=== PATIENT | male | born 1965 | race Caucasian/White ===

== ENCOUNTER 2023-12-01 00:34 | Emergency (ER) | payer BC, SELFPAY ==
[2023-12-01 00:42] VITALS: BP 144/94; PULSE 75; RESP 20; TEMP 36.5; O2SAT 100; BMI 34.4
--- NOTE | 2023-12-01 01:03 | ED.GENADULT ---
HPI - General Adult General Chief complaint: Cough Stated complaint: Cough History of Present Illness HPI narrative: Patient is a 58-year-old gentleman comes in today with nonproductive cough 10 days duration. He has had no fevers no chills no night sweats no shortness of breath. He is quite frustrated by the persistence of the coughing and is looking for further treatment. He has been taking halls and Mucinex at home with no improvement. No other significant symptoms have been noted. Patient has been eating and drinking and staying hydrated. Related Data Home Medications Medication Instructions Recorded Confirmed guaifenesin [Mucinex] PO 11/29/23 11/29/23 Previous Rx's Medication Instructions Recorded amoxicillin 875 mg-potassium 1 tab PO BID 10 days #20 tabs 11/29/23 clavulanate 125 mg tablet benzonatate 200 mg capsule 200 mg PO BID-TID PRN cough #30 11/29/23 caps Allergies Allergy/AdvReac Type Severity Reaction Status Date / Time acetaminophen [From Roxicet] AdvReac Hallucinati Verified 12/01/23 00:42 ng oxycodone [From Roxicet] AdvReac Hallucinati Verified 12/01/23 00:42 ng Review of Systems Status of ROS: Reports: 6 or more systems reviewed and unremarkable except as noted in History and below [facility] Medical History Gastroenteritis ?K52.9 - Noninfective gastroenteritis and colitis, unspecified (ICD-10) Exam Narrative: Exam Narrative: EXAM GENERAL: Patient appears comfortable and well. EYES: No scleral icterus. ENT: Tympanic membranes and oropharynx normal. THYROID: no thyroid nodules or thyromegaly. LYMPH: No supraclavicular or cervical lymphadenopathy. SKIN: Visible skin seen during exam normal or with benign process only. EXT: No dependent lower extremity pedal edema. HEART: Regular rate and rhythm with no murmurs, rubs, or gallops. LUNGS: Clear to auscultation bilaterally with no crackles or wheezes. ABD: Soft, non tender, non distended. PSYCH: Good eye contact, speech is not pressured. Const: Vital Signs, click to edit/add: Vital Signs - 24 hr 12/01/23 00:42 Temperature 97.7 F Pulse Rate [Pulse Oximeter] 75 Respiratory Rate 20 Blood Pressure [Ri ght Upper Arm] 144/94 H Pulse Oximetry 100 Oxygen Delivery Me thod Room Air Course Course ED Course: Patient seen and examined. Vital Signs Vital signs: Initial Vital Signs Temperature 97.7 F 12/01/23 00:42 Temperature Source Temporal Artery Scan 12/01/23 00:42 Pulse Rate 75 12/01/23 00:42 Pulse Rhythm Regular 12/01/23 00:42 Pulse Strength 3+ Normal 12/01/23 00:42 Respiratory Rate 20 12/01/23 00:42 Blood Pressure 144/94 H 12/01/23 00:42 Blood Pressure Mean 110 H 12/01/23 00:42 Blood Pressure Position Sitting 12/01/23 00:42 Pulse Oximetry 100 12/01/23 00:42 Oxygen Delivery Method Room Air 12/01/23 00:42 Vital Signs Temperature 97.7 F 12/01/23 00:42 Pulse Rate 75 12/01/23 00:42 Respiratory Rate 20 12/01/23 00:42 Blood Pressure 144/94 H 12/01/23 00:42 Pulse Oximetry 100 12/01/23 00:42 Oxygen Delivery Method Room Air 12/01/23 00:42 Temperature 97.7 F 12/01/23 00:42 Pulse Rate 75 12/01/23 00:42 Respiratory Rate 20 12/01/23 00:42 Blood Pressure 144/94 H 12/01/23 00:42 Pulse Oximetry 100 12/01/23 00:42 Oxygen Delivery Method Room Air 12/01/23 00:42 Medical Decision Making [facility] Narrative Medical decision making narrative: Patient is a reasonably healthy 58-year-old gentleman comes in today with nonproductive cough. He has normal exam and normal vital signs. I do not believe further testing is indicated. I did place him on a short course of prednisone. I recommend [facility] and outpatient follow-up. Differential diagnosis includes but not limited to pneumonia bronchitis congestive heart failure asthma viral syndrome. Discharge Plan Discharge Clinical Impression: Bronchitis Condition: Stable Instructions: Acute Bronchitis (ED) Additional Instructions: Mauricesin DM [id number] as directed Prednisone as directed Continue symptomatic care Follow-up with your doctor this coming week. Activity Level: No Restrictions Discharge Diet: Regular Prescriptions: No Action guaifenesin [Mucinex] PO amoxicillin-pot clavulanate 875-125 mg tablet 1 tab PO BID 10 Days Qty: 20 0RF benzonatate 200 mg capsule 200 mg PO BID-TID PRN (Reason: cough) Qty: 30 0RF Follow Up/Referrals: Provider,Not a Local [Primary Care Provider] - Stand Alone Forms: [employer] Info Instructions
== END 2023-12-01 01:13 | disposition home or self-care (01) ==
LOC: ED 01:08
PROVIDERS: Emergency Provider Internal Medicine
DX: J40 Bronchitis, not specified as acute or chronic (principal)
CPT/HCPCS: 99283

== ENCOUNTER 2025-06-21 21:16 | Emergency (ER) | payer BC, SELFPAY ==
--- OUTSIDE RECORDS SUMMARY | 2007-07-18 13:33 | XMS_ITS | Continuity of Care Document ---
Author Organization [facility] Address [address] [address] [place] [address] Phone Care Team Providers Care Heater Engineer Helper Name Role Phone Basilio Nova MD Unavailable Unavailable Procedures Procedure Date Subsqt Hosp-da E&m Minr Compl 7 Advance Directives Directive Yes / No Effective Date File Name No Information Encounters Encounter Description Practice Location Reason(s) For Visit Diagnoses Date Provider Providers Copied on Encounter Subsqt Hosp-da E&m Minr Compl [facility], [address] [address], [place], [place], [id number], [place] tel:[phone] [facility] No Information [place] [place]. [address] [facility], [facility] [address], [place], [place], [id number], [place]. tel:[phone] Family History Family Member Type Diagnosis Age At Onset No Information Payers Payer name Insurance type Covered alliance party ID Authoriza tion(s) [employer] [id number] Social History Type Description Quantity Date Captured Comments Sex Male Smoking Status No Information Chief Complaint And Reason For Visit No Information Reason For Referral Reason For Referral No Information History Of Present Illness Encounter Date Complaint History Of Prese nt Illness No Information Functional Status Date Functional Assessmen t No Information Instructions Date Instruction Additional Infor mation No Information Assessments Type Assessment Date No Information Patient Care Teams Name Effective Dates (start - stop) Status Members No Information
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
[2025-06-21 21:32] VITALS: BP 191/101; PULSE 86; RESP 16; TEMP 36.6; O2SAT 100; BMI 29.3
[2025-06-21 23:52] VITALS: BP 177/93; PULSE 85; RESP 16; O2SAT 99
--- OUTSIDE RECORDS SUMMARY | 2025-06-22 00:03 | XMS_ITS | Clinical Summary ---
Author Organization [facility] er Address [address] [place] [address] Care Team Providers Care Harness Repairer Name Role Phone None, Pcp Primary Care Provider Unavailabl e Allergies Active Allergy Reactions Criticality Noted Date Comments Eszopiclone Other (see comments) 03/17/2008 Horrible nightmares Zolpidem Other (see comments) 03/17/2008 Sleep walking Medications hydrOXYzine (ATARAX) 25 MG tabletIndicatio ns:Adjustment disorder with anxiety Take 1 tablet (25 mg total) by mouth every 8 (eight) hours if needed for anxiety 45 tablet 1 5 Active hydrOXYzine (ATARAX) 25 MG tabletIndicatio ns:Adjustment disorder with anxiety Take 1 tablet (25 mg total) by mouth every 8 (eight) hours if needed for anxiety 45 tablet 1 5 06/18/20 25 Discontinu ed(Reorder ) Active Problems Problem Noted Date Diagnosed Date Elevated blood pressure read ing in office without diagnosis of hypertension 06/18/2025 Adjustment disorder with anxiety 06/18/2025 Encounters Date Type Department Care Team Description 06/19/[address] [address] Dilshad Lara MD Psych referral 06/18/2025 4:00 PM CDT Office Visit [address] [address] Dilshad Lara MD Elevated blood pressure reading in office without diagnosis of hypertension (Primary Dx); Adjustment disorder with anxiety; Screening for diabetes mellitus; Screening for cardiovascular condition; Screening for prostate cancer; Need for hepatitis C screening test; Screen for STD (sexually transmitted disease) from Last 3 Months Immunizations Immunization Administration Dates Next Due PPD Test 03/18/2007 Family History Medical History Relation Comments No Known Problems Daughter 1 No Known Problems Daughter 2 Heart disease Father Cancer Mother Heart disease Paternal Grandfather Relation Status Comments Daughter 1 Alive Daughter 2 Alive Father Mother Paternal Grandfather Social History Tobacco Use Types Packs/Day Years [...] week 06/18/2025 How often do you attend [facility] or rastafari services? More than 4 times per year 06/18/2025 Do you belong to any clubs o r organizations such as congregation groups, unions, fraternal or athletic groups, or [...] medical care, and heating? Somewhat hard 06/18/2025 [facility] - Occupational Stress Questionnaire Answer Date Recorded [...] any time in the past 12 m [facility], were you homeless or living in a correction (including now)? No 06/18/2025 B1300 Health Literacy Answer Date Recor ded How often do you need to hav e someone help you when you read instructions, pamphlets, or other written material from your doctor or pharmacy? Never 06/18/2025 [facility] Utilities Answer Date Recorded In the past 12 months has th [employer] electric, gas, oil, or water company threatened to shut off services in your home? No 06/18/2025 Interpersonal Safety Questionnaire Answer Date Recorded How often does anyone, chata ferguson family and friends, physically hurt you? Never [...] on file Sexual Orientation Not on file Last Filed Vital Signs Vital Sign Reading [...] Mass Index 29.89 06/18/2025 4:13 PM CDT Plan of Treatment Upcoming Encounters Date Type Department Care Team (Late st Contact Info) Description 07/02/2025 4:40 PM CDT Clinical Support [place] [address] 07/22/2025 8:15 AM COLD STORAGE SUPERVISOR Office Visit [facility] [address] [place] [id number] 07/24/2025 3:20 PM COLD STORAGE SUPERVISOR Office Visit [place] [address] Dilshad Lara MD [address] [place] [address] Health Maintenance Due Date Last Done Comments CT Colonography 1967 Colonoscopy 1967 Colorectal Cancer Screening 1967 FIT-DNA 1967 Sigmoidoscopy 1967 iFOBT 1967 Pneumococcal Vaccine: 50+ Years (1 of 1 - PCV) 2017 Zoster Vaccines (1 of 2) 2017 DTaP,Tdap,and Td Vaccines (2 - Td or Tdap) 06/07/2022 06/07/2012, 03/17/2008, 03/17/2008, Additional history exists COVID-19 Vaccine ( season) 2025 12/14/2021, 09/16/2021, 04/29/2021, Additional history exists Influenza Vaccine (#1) 2025 06/14/2020 HPV Vaccines Aged Out No longer eligi ble based on patient's age to complete this topic Insurance [place] [id number] [facility] Care Teams Harness Repairer Relationship Specialty Start Date End Date None, Pcp [address] [place] [phone] PCP - General Pear Picker 06/15/25
--- OUTSIDE RECORDS SUMMARY | 2025-06-22 00:03 | XMS_ITS | Clinical Summary ---
Author Organization [facility] Address [address] [place] [address] Care Team Providers Care Ending Machine Operator Name Role Phone Ezequiel Ethan Gustavo Primary Care Provider [phone] Allergies Active Allergy Reactions Criticality Noted Date Comments Eszopiclone Other - Describe In Comment Field 03/17/2008 Horrible nightmares Zolpidem Tartrate Other - Describe In Comment Field 03/17/2008 Sleep walking Medications aspirin chewable 20.25 mg as quarter tablet see hx. for details (b.p. alert off)- secondary to gastric bypass 6 Active acetaminophen (TYLENOL EXTRA STRGTH) 500 mg tablet Take 1,000 mg by mouth. 1 Active cyanocobalamin (VITAMIN B12) 500 mcg tablet Take by mouth. 5 Active LORazepam (ATIVAN) 0.5 mg tabIndications: Generalized anxiety disorder Take 2 tablets by mouth at bedtime if needed. 90 tablet 0 Active Immunizations Immunization Administration Dates Next Due HepA-HepB (Twinrix) 08/18/2005,11/07/2004,2003 MMR 03/01/2004 Td (Age >=7 Years) 03/17/2008 Td, Preservative Free (age >= 7 Years) 8,09/03/1999 Tdap 06/07/2012 Tuberculin (PPD) 03/18/2007 Typhoid (oral) 05/18/2008 Social History Tobacco Use Types Packs/Day Years Used Date Smoking Tobacco: Never Smokeless Tobacco: Never Alcohol Use Standard Drinks/Week Comments Yes 0 (1 standard drink = 0.6 oz pur e alcohol) socially Sex and Gender Information Value Date Recorded Sex Assigned at Not on file Legal Sex Male 6:50 AM PLATING OPERATOR Gender Identity Not on file Sexual Orientation Not on file Obstetrics History Last Filed Vital Signs Vital Sign Reading Time Taken Comments Blood Pressure 124/82 08/25/2019 11:51 AM PLATING OPERATOR Pulse 96 08/25/2019 11:51 AM PLATING OPERATOR Temperature - - Respiratory Rate - - Oxygen Saturation - - Inhaled Oxygen Concentration - - Weight 108.8 kg (239 lb 14.4 oz) 2018 11:51 AM PLATING OPERATOR Height 177.8 cm (5' 10) 08/25/2019 11: 51 AM PLATING OPERATOR Body Mass Index 34.42 08/25/2019 11:51 AM PLATING OPERATOR Plan of Treatment Health Maintenance Due Date Last Done Comments Depression screening for age 12+ 1979 HIV for age 15-65 1982 Hepatitis C screening for ag e 18-79 1985 Colonoscopy through age 75 2012 Lipids for age 45-75 2012 Pneumococcal series for age 50+ (1 of 1 - PCV) 2017 Zoster (shingles) series for age 50+ (1 of 2) 2017 BMI (ht and wt on same day) for age 18+ 08/25/2020 08/25/2019 Tetanus booster 06/07/2022 06/07/2012, 03/03, 03/17/2008, Additional history exists COVID-19 vaccine series ( - 2023- season) 2025 Influenza Vaccine (#1) 2025 RSV vaccine for adults or (1 - 1-dose 75+ series) 2042 Hepatitis B series for 19+ Completed 08/18, 11/07/2004, 03/01/2004 Insurance [employer] Care Teams Ending Machine Operator Relationship Specialty Start Date End Date Ethan Nieevs DO PCP - General Family Practice 08/25/19
--- OUTSIDE RECORDS SUMMARY | 2025-06-22 00:03 | XMS_ITS | Encounter Summary ---
Author Organization [facility] er Address [address] [place] [address] Care Team Providers Care Mixing Engineer Name Role Phone None, Pcp Primary Care Provider Unavailabl e Reason for Visit * Reason Onset Date Comments Psych referral 06/19/2025 Encounter Details Date Type Department Care Team (Late st Contact Info) Description 06/19/2025 Telephone [place] [address] [address] Dilshad Lara MD [address] [phone] Psych referral Social History Tobacco Use Types Packs/Day Years [...] week 06/18/2025 How often do you attend chur ch or evangelical services? More than 4 times per year 06/18/2025 Do you belong to any clubs o r organizations such as restoration groups, unions, fraternal or athletic groups, or [...] medical care, and heating? Somewhat hard 06/18/2025 [facility] [place] [facility] - Occupational Stress Questionnaire Answer Date [...] any time in the past 12 m [facility], were you homeless or living in a care home (including now)? No 06/18/2025 B1300 Health Literacy Answer Date Recor ded How often do you need to hav e someone help you when you read instructions, pamphlets, or other written material from your doctor or pharmacy? Never 06/18/2025 [facility] Utilities Answer Date Recorded In the past [...] harm? Never 06/18/2025 How often does anyone, basimjacob ferguson family and friends, threaten you with harm? Never 06/18/2025 Sex and Gender Information Value Date Recorded Sex Assigned at Not on file Legal Sex Male 3:45 PM CDT Gender Identity Not on file Sexual Orientation Not on file documented as of this encounter Miscellaneous Notes * Telephone Encounter - Rosa Mittal LPN - 06/19/2025 3:00 PM CDT Referral faxed to [facility] [phone] documented in this encounter Plan of Treatment Upcoming Encounters Date Type Department Care Team (Late st Contact Info) Description 07/02/2025 4:40 PM CDT Clinical Support [place] [address] [place] [address] [place] [address] 07/22/2025 8:15 AM CONDOMINIUM ASSOCIATION MANAGER Office Visit Matti Abel [address] [place] [address] [place] [address] 07/24/2025 3:20 PM CONDOMINIUM ASSOCIATION MANAGER Office Visit Matti Abel [address] [place] [address] [place] [address] Dilshad Lara MD [address] [place] [address] documented as of this encounter Visit Diagnoses Not on filedocumented in this encounter Care Teams Mixing Engineer Relationship Specialty Start Date End Date None, Pcp [address] [place] [address] PCP - General Senior Loss Control Specialist 06/15/25 documented as of this encounter
--- NOTE | 2025-06-22 00:13 | ED.ANXIETY ---
HPI - Anxiety General Date Seen: 06/22/25 Chief Complaint: Hypertension Stated Complaint: anxiety, high blood pressure Time Seen by Provider: 06/21/25 23:15 Source: patient Mode of arrival: ambulatory Limitations: no limitations History of Present Illness HPI narrative: Patient is a very nice gentleman who presents here with anxiety, he has a flushes of anxiety which drive of his blood pressure he started seeing a new doctor is . Did give him some Atarax, which she took 25 mg at home. But this did not help, his blood pressure went to 190. He did not have any complaints of headaches, visual changes, chest pain shortness of breath or other issues in fact he has had this in the past. He came in because his blood pressure was high enough that he thought he should be seen. Feels good now he denies any symptoms when I have seen him. No history of previous cardiac conditions, or other issues. Denies any drug use, denies alcohol use. History of gastric bypass with significant weight loss MD complaint: anxiety Related Data Home Medications ?Medication ?Instructions ?Recorded ?Confirmed hydroxyzine HCl 25 mg tablet 25 mg PO Q8H PRN anxiety 06/21/25 06/21/25 Allergies Allergy/AdvReac Type Severity Reaction Status Date / Time acetaminophen (From Roxicet) AdvReac Hallucinati Verified 12/01/23 00:42 ng oxycodone (From Roxicet) AdvReac Hallucinati Verified 12/01/23 00:42 ng Review of Systems Status of ROS: Reports: 10 or more systems reviewed and unremarkable except as noted in History and below PFSH PFS Medical History Gastroenteritis ?K52.9 - Noninfective gastroenteritis and colitis, unspecified (ICD-10) Social History Smoking Status: Never smoker Do you use any of these nicotine containing products: None Second hand tobacco smoke exposure: No How often do you have a drink containing alcohol: never AUDIT-C Alcohol total score: 0 Non-prescribed substance use: denies use service: No Exam Narrative: Exam Narrative: On examination in room 3 he is in no apparent distress his blood pressures down nicely to 177 systolic by seen time I see him. Nontoxic pupils equal round reactive to light fundi appear normal neck is supple full range of motion JVP is normal, and flat and his carotid upstrokes are equal, cranial nerves 3-12 are grossly normal. Chest is good air entry bilaterally no wheezing crackles noted his heart sounds are normal. Const: Vital Signs, click to edit/add: Vital Signs - 24 hr 06/21/25 21:32 06/21/25 23:52 06/22/25 00:22 Temperature 97.8 F Pulse Rate [Pulse Oximeter] 86 85 Respiratory Rate 16 16 Blood Pressure [Ri ght Upper Arm] 191/101 H 177/93 H 172/96 H Pulse Oximetry 100 99 Oxygen Delivery Me thod Room Air Room Air Documenting provider has reviewed patient's vital signs: yes Course Course ED Course: I discussed with the patient, we will give him some lorazepam to take home, he had been on this before, reviewed the REIMBURSEMENT COORDINATOR do not show any prescriptions. Did agree a follow-up with his physician. Vital Signs Vital signs: Initial Vital Signs Temperature 97.8 F 06/21/25 21:32 Temperature Source Temporal Artery Scan 06/21/25 21:32 Pulse Rate 86 06/21/25 21:32 Respiratory Rate 16 06/21/25 21:32 Blood Pressure 191/101 H 06/21/25 21:32 Blood Pressure Mean 131 H 06/21/25 21:32 Blood Pressure Position Sitting 06/21/25 21:32 Pulse Oximetry 100 06/21/25 21:32 Oxygen Delivery Method Room Air 06/21/25 21:32 Vital Signs Temperature 97.8 F 06/21/25 21:32 Pulse Rate 86 06/21/25 21:32 Respiratory Rate 16 06/21/25 21:32 Blood Pressure 191/101 H 06/21/25 21:32 Pulse Oximetry 100 06/21/25 21:32 Oxygen Delivery Method Room Air 06/21/25 21:32 Temperature 97.8 F 06/21/25 21:32 Pulse Rate 85 06/21/25 23:52 Respiratory Rate 16 06/21/25 23:52 Blood Pressure 172/96 H 06/22/25 00:22 Pulse Oximetry 99 06/21/25 23:52 Oxygen Delivery Method Room Air 06/21/25 23:52 Medications Administered Medications: Discontinued Medications Generic Name Dose Route Start Last Admin Trade Name Freq PRN Reason Stop Dose Admin Lorazepam 0.5 mg 06/21/25 23:46 06/21/25 23:49 Lorazepam 0.5 Mg Tablet PO 06/21/25 23:47 0.5 mg ONCE ONE Administration MDM - Anxiety MDM Narrative Medical decision making narrative: I discussed with him, the this is most likely anxiety I do agree with him. I do think he needs to have a more formal workup with his physician, his I would consider other things such as a pheochromocytoma or a cortisol issue. This can be done in the primary care setting and does not have to be done here. We will give a small supply of Ativan which she has used in the past he can use. From our Differential Diagnosis Differential diagnosis: Likely hyperventilation, panic disorder and acute anxiety Medical Records Attestation: I reviewed the patient's medical records. Discharge Plan Discharge Clinical Impression: Anxiety, Hypertension Patient Disposition: Home, Self-Care Condition: Improved Instructions: Hypertension (ED), Anxiety (ED) Additional Instructions: Home rest medications as directed continue to take your blood pressures, follow-up with primary care for further evaluation do not drink alcohol with the medications I gave you. Activity Level: Light activity Discharge Diet: Regular Prescriptions: No Action hydroxyzine HCl 25 mg tablet 25 mg PO Q8H PRN (Reason: anxiety) Follow Up/Referrals: Dilshad Lara MD [Primary Care Provider, Internal Medicine] Stand Alone Forms: Feed.fm Info Instructions
[2025-06-22 00:22] VITALS: BP 172/96
[2025-06-22 00:50] VITALS: BP 146/86; PULSE 90; RESP 16; O2SAT 98
== END 2025-06-22 00:52 | disposition home or self-care (01) ==
PROVIDERS: Emergency Provider Family Medicine; PCP Family Medicine
DX: F41.9 Anxiety disorder, unspecified (principal); I10 Essential (primary) hypertension
CPT/HCPCS: 99283; 99284; A9270